=== PATIENT | male | born 1965 | race Caucasian/White ===

== ENCOUNTER → 2017-12-11 09:09 | Outpatient (CLI) | payer OTHER, SELFPAY ==
--- NOTE | 2017-12-11 09:18 | RAD_ITS ---
STUDY: X-RAY - RIGHT SHOULDER REASON FOR EXAM: Male, 51 years old. Pain TECHNIQUE: 4 view(s) of the shoulder. COMPARISON: None. FINDINGS: There is no evidence of fracture or dislocation. There are mild degenerative changes. There are no radiodense foreign bodies. RAD/Shoulder min 2 Views IMPRESSION: No fracture or dislocation. Mild degenerative changes Electronically Signed: Jc Nick, at 17:31 EDT Tel , Service support ,
== END ==
PROVIDERS: Family Provider Family Medicine; PCP Family Medicine; Referring Provider Family Medicine; Visit Provider Family Medicine
DX: M19.011 Primary osteoarthritis, right shoulder (principal)
CPT/HCPCS: 73030

== ENCOUNTER → 2018-02-20 11:34 | Outpatient (CLI) | payer OTHER, SELFPAY ==
[2018-02-20 14:38] LABS: Anion Gap 8 (5-15); BUN 20 mg/dL (7-18); BUN/Creat Ratio 20.4 RATIO (10-20); Calcium,Total 8.9 mg/dL (8.5-10.1); Chloride 102 mmol/L (98-107); Cholesterol 186 mg/dL (200); Creatinine, Serum 0.98 mg/dL (0.70-1.30); EST Glomerular Filtration Rate 85 mL/min (>60); Est Glom Filt Rate - Afr Amer 103 mL/min (>60); Glucose 89 mg/dL (74-106); High Density Lipoprotein 53 mg/dL; Potassium 4.8 mmol/L (3.5-5.1); Sodium Level 139 mmol/L (136-145); Triglycerides 63 mg/dL; Very Low Density Lipoprotein 13 mg/dL (5-40)
== END ==
PROVIDERS: Family Provider Family Medicine; PCP Family Medicine; Visit Provider Family Medicine
DX: I10 Essential (primary) hypertension (principal)
CPT/HCPCS: 36415; 80048; 80061

== ENCOUNTER 2018-05-30 08:30 | Outpatient (RCR) | payer OTHER, SELFPAY ==
--- NOTE | 2018-03-06 12:16 | HP.PTEVAL_ITS ---
Patient's Visit Information JEAN MARIE ALCARAZ is a 52 year old M referred to Physical Therapy by Loretta Madden MD with a diagnosis of RIGHT SHOULDER PAIN. Date of Evaluation: 03/06/18 Physical Therapist: Becka Rice PT, Cert MDT - Visit Plan Frequency: 2x /Week Duration: 4-6 Weeks Plan: CERVICAL AND RIGHT UE TREATMENT INCLUDING TX, US, E-STIM, STM, POSTURE CORRECTION/STRENGTHENING, INSTRUCTION IN APPROPRIATE BODY MECHANICS AND ACTIVITY MODIFICATIONS. JESUS UE ROM, STRETCHING AND STRENGTHENING. HEP INSTRUCTION. PATIENT IS AGREEABLE. CONSIDER DRY NEEDLING. - Subjective Findings: Diagnosis: RIGHT SHOULDER PAIN. 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 CURRENTLY ON SEASONAL LAYOFF. HOBBY - WORKING IN HIS YARD. Disability: NO. Present symptoms: RIGHT SHOULDER. RIGHT ARM FALLS ASLEEP INTERMITTENTLY. NO NECK PAIN. 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 DOESN'T USUALLY GET HEADACHES BUT WHEN HE DOES THEY USUALLY LAST ALL DAY. Present since: 2016. Pain Scale: Worst - 7/10 Least - 2/10. Currently: 05/05. Commenced as a result of: NO APPARENT REASON. Symptoms at onset: RIGHT. Worse: DOING CERTAIN THINGS AT WORK. DOING PHYSICAL LABOR. HAMMERING. ANYTIME I HAVE TO LIFT MY ARM UP. LIFTING THINGS. Better: I DON'T REALLY KNOW. ALEVE. Disturbed sleep: YES. Previous history/Previous treatment: NO TREATMENTS YET. Dizziness: NO. Tinnitis: NO. Nausea: NO. Shortness of Breath: NO. Difficulty Swollowing: NO. Gait: NORMAL. Accidents: NO. Unexplained weight loss: NO. Imaging: RIGHT SHOULDER RECENT X-RAY - MILD DEGENERATIVE CHANGES. PMH/Recent major surgery: HTN. SLEEP APNEA. PLOF (Prior Level of Function): UNLIMITED FUNCTION IN 2016 IN RIGHT UE BEFORE RIGHT SHOULDER PAIN AND DYSFUNCTION STARTED EXCEPT WEAKNESS IN HANDS THAT STARTED 6-8 YEARS AGO AFFECTING HIS GLASS TINTER BUT LIFTING WAS UNLIMITED. OTHER: RIGHT HANDED. *AFTER EXAM, PATIENT REPORTS THAT SEVERAL TIMES A YEAR WHEN HE SLEEPS WRONG HIS NECK HURTS AND IT GETS HARD TO TURN HIS HEAD EVEN ENOUGH TO DRIVE. HIS WORST NECK EPISODE WAS ABOUT SEP 2017 AND IT IS WORST ONE HE HAS HAD. - Objective Sitting Posture/Standing Posture: POOR. FORWARD HEAD AND ROUNDED SHOULDERS. Active Correction of posture: BETTER. ALLEVIATES RIGHT UE TINGLING ALMOST IMMEDIATELY. Other Observations: INDEP GAIT INTO PT. Motor deficit: 82 LBS LEFT AND 73 LBS RIGHT GLASS TINTER STRENGTH. LEFT UE 5/5. RIGHT UE: FLEX 3-/5, ABD 2+/5, IR 4/5, ER 4/5. RIGHT SHOULDER IR AND ER TESTING PROVOKES RIGHT SHOULDER PAIN. Sensory deficit: DECREASED LIGHT TOUCH RIGHT ARM COMPARED TO LEFT BUT INTACT AND SYMMETRICAL IN FOREARMS AND HANDS. ROM deficit: AROM RIGHT SHOULDER: SITTING, FLEX 131 DEG, ABD 112 DEG. SUPINE: PASSIVE RIGHT SHOULDER FLEX 158 DEG, ABD 142 DEG, IR 71 DEG, ER 76 DEG WITH ROTATIONS MEASURED AT 80 DEG ABD. Reflexes: UNABLE TO ELICIT JESUS UE DTR'S. Dural Signs: POSITIVE RIGHT UE AND NEGATIVE LUE. Cervical Mvmt Loss: Flex: NIL - PULLS ON THE BACK MUSCLES AND RIGHT SHOULDER > LEFT AND PRODUCES TINGLING DOWN THE RIGHT UE. Pro: NIL - NE. Ext: MOD - PRODUCES CENTRAL NECK PAIN. Ret: LACHO - NE. RSB: MIN - PRODUCES PULL ON RIGHT SHOULDER. LSB: MIN - NE. R Rot: MIN TO MOD - IT GAVE ME A HEADACHE FLEETING. L Rot: MIN TO MOD - NECK STIFFNESS. Postural strength: PPOR. Palpation: NO ACUTE TENDERNESS WITH PALPATION OF THE CERVICAL OR SHOULDER REGIONS INTO THE SHOULDER BLADES. OTHER: CERRVICAL DISTRACTION DECREASES RIGHT SHOULDER AND ARM SX'S. - Goals Goal 1:: DECREASE C/O RIGHT SHOULDER PAIN Goal Time Frame: 4-6 Weeks Goal 2:: IMPROVE LIFTING, REACHING, WORK, SLEEP AND RECREATIONAL FUNCTION Goal Time Frame: 4-6 Weeks Goal 3:: INDEP WITH HEP AND INSTRUCT IN PROPHYLAXIS FOR CONTINUED IMPROVEMENT ONCE FORMAL PHYSICAL THERAPY CONCLUDES. Goal Time Frame: 4-6 Weeks - Rehabilitation Potential Physical Therapy Diagnosis: NECK AND RIGHT SHOULDER PAIN WITH RIGHT UE WEAKNESS. Rehabilitation Potential: Fair - Anticipated Interventions Patient/Client Instruction: Educate patient on: Condition, Plan of Care, Risk Factors, Benefits of Fitness Program For the Purpose of:: To improve self management Therapeutic Exercise to Include: Strength training, Postural training, Flexibilty training, Passive ROM, Active ROM, Scapular Strength/Stabilization For the Purpose of:: To decrease pain, To increase ROM, To improve muscle performance and motor function, To increase tolerance to activity/condition/position, To improve ability of physical actions for home/community/work/leisure Manual Therapy Techniques to Include: Mobilization, Functional dry needling, Soft tissue mobilization For the Purpose of:: To decrease pain, To increase ROM, To improve nutrient delivery to tissue TENS: Yes Cryotherapy (ice pack, ice massage): Yes Thermo therapy (hot pack): Yes Ultrasound (thermal/non thermal): Yes Intermittent cervical traction: Yes - STARTING WITH MANUAL FIRST. For the Purpose of:: To decrease pain, To decrease swelling/inflammation, To improve nutrient delivery to tissue Thank you for the opportunity to evaluate your patient. For Medicare and Medicare HMO plans, please review the plan of care and approve it. It will need to be FAXED BACK to us at [phone] for Medicare purposes. For Medicare only, by signing this I certify the plan of care. Please let me know if there are questions or concerns regarding this plan of care. Physician Signature: Date:
--- NOTE | 2018-04-30 10:20 | HP.PTREVAL ---
Loretta Madden MD, It has been my pleasure to treat JEAN MARIE ALCARAZ over the last 11 visits for RIGHT SHOULDER PAIN. Please see the progress note below for an update on the physical therapy plan of care! Subjective: PATIENT REPORTS HIS SHOULDER DOESN'T CLICK THE WAY IT USE TO. I AM DEFINATELY NOT IN PAIN THE WAY THAT I WAS. HE REPORTS DECREASED EPISODES OF EXTREMITIES GOING TO SLEEP BUT IT HAPPENDED A FEW NIGHTS AGO. PATIENT REPORTS HE IS STILL MINDFUL WITH HOW HE USES IT THOUGH. PATIENT REPORTS HE ANTICIPATES GOING BACK TO WORK VERY SOON BUT HE REALLY HASN'T TESTED HIS SHOULDER OUT. PATIENT REPORTS HE THINKS THE TRACTION HELPED HIS SHOULDER AND IT ALWAYS HELPS WHEN IT GETS STRETCHED. FOLLOW UP PENDING WITH DR. MADDEN TODAY. PATIENT REPORTS HE IS DOING HIS HOME EX'S AND THEY LIKE HIM. HE WOULD LIKE TO SEE IF HE CAN PROGRESS TO BUILD UP FOR WORK. Objective/Function: GOOD PROGRESS TOWARD ALL GOALS. PAINFREE CERVICAL AND SHOULDER ROM IMPROVING. DECREASED RIGHT UE NUMBNESS AND TINGLING. INCREASING RIGHT UE STRENGTH AND FUNCTION. QUICK DASH SCORE HAS IMPROVED FROM 31 AT EVAL TO 21 TODAY. 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 LEFT UE 5/5. RIGHT UE: FLEX 4/5, ABD 4/5, IR 5/5, ER 4/5. RIGHT SHOULDER IR AND ER TESTING PROVOKES RIGHT SHOULDER PAIN. Sensory deficit: DECREASED LIGHT TOUCH RIGHT ARM COMPARED TO LEFT BUT INTACT AND SYMMETRICAL IN FOREARMS AND HANDS. ROM deficit: AROM RIGHT SHOULDER: SITTING, FLEX 160 DEG, ABD 170 DEG. SUPINE: PASSIVE RIGHT SHOULDER FLEX - FULL, ABD - FULL, IR 80 DEG, ER 90+ DEG WITH ROTATIONS MEASURED AT 90 DEG ABD. Dural Signs: NEGATIVE JESUS UE'S NOW. Cervical Mvmt Loss: Flex: NIL - NE (DOES NOT PRODUCE RIGHT UE SX'S NOW). Pro: NIL - NE. Ext: MOD - NE. Ret: MOD - NE. RSB: MIN - NE. LSB: MIN - NE. R Rot: MIN TO MOD - NE. L Rot: MIN TO MOD - NE. Postural strength: PPOR. Palpation: NO ACUTE TENDERNESS WITH PALPATION OF THE CERVICAL OR SHOULDER REGIONS INTO THE SHOULDER BLADES. OTHER: CERRVICAL DISTRACTION DECREASES RIGHT SHOULDER AND ARM SX'S. PATIENT ALSO REPORTS DECREASED SHOULDER PAIN WITH MANUAL THERAPY OF SHOULDER (MOBILIZATION AND PASSIVE STRETCHING). Plan Plan: THIS PT AND THERAPIST ARE IN AGREEMENT THAT PATIENT MAY BENEFIT FROM CONTINUED PT BASED ON PROGRESS MADE SO FAR AND ROOM FOR MORE IMPROVEMENT. RECOMMEND CONT PT 2X'S A WEEK X 2 WEEKS FOR CERVICAL TRACTION NEEDED AND PROGRESSIVE RESISTIVE EX TO HELP SUCCESSFUL TRANSITION BACK TO HEAVY WORK. Goals Goal 1:: DECREASE C/O RIGHT SHOULDER PAIN Goal Time Frame: 4-6 Weeks Goal Progress: Progressing Goal 2:: IMPROVE LIFTING, REACHING, WORK, SLEEP AND RECREATIONAL FUNCTION Goal Time Frame: 4-6 Weeks Goal Progress: Progressing Goal 3:: INDEP WITH HEP AND INSTRUCT IN PROPHYLAXIS FOR CONTINUED IMPROVEMENT ONCE FORMAL PHYSICAL THERAPY CONCLUDES. Goal Time Frame: 4-6 Weeks Goal Progress: Progressing Anticipated Interventions Patient/Client Instruction: Educate patient on: Condition, Plan of Care, Risk Factors, Benefits of Fitness Program For the Purpose of:: To improve self management Therapeutic Exercise to Include: Strength training, Postural training, Flexibilty training, Passive ROM, Active ROM, Scapular Strength/Stabilization For the Purpose of:: To decrease pain, To increase ROM, To improve muscle performance and motor function, To increase tolerance to activity/condition/position, To improve ability of physical actions for home/community/work/leisure Manual Therapy Techniques to Include: Mobilization, Functional dry needling, Soft tissue mobilization For the Purpose of:: To decrease pain, To increase ROM, To improve nutrient delivery to tissue TENS: Yes Cryotherapy (ice pack, ice massage): Yes Thermo therapy (hot pack): Yes Ultrasound (thermal/non thermal): Yes Intermittent cervical traction: Yes - STARTING WITH MANUAL FIRST. For the Purpose of:: To decrease pain, To decrease swelling/inflammation, To improve nutrient delivery to tissue Please do not hesitate to contact me at [phone] by phone or if you have questions or concerns regarding this new plan of care! Sincerely, Becka Rice, PT, Cert MDT
--- NOTE | 2018-05-30 10:04 | HP.PTDCSUM_ITS ---
HP - PT D/C Summary It has been my pleasure to treat JEAN MARIE ALCARAZ under orders from Loretta Madden MD, for the diagnosis of RIGHT SHOULDER PAIN for a total of 17 visit(s). Discharge Date: 05/30/18 Please see the following information for a summary of their discharge status. - Subjective Subjective: PATIENT REPORTS HE HAS NOT BEEN WORKING THE LAST WEEK AND ISN'T SURE IF HE STILL HAS A JOB. HAS TRIED TO START DOING THINGS OUTSIDE. STATES HIS RIGHT SHOULDER JUST STILL HURTS. HE REPORTS HIS RIGHT SHOULDER PAIN LIMITS HIM WANTING TO DO MUCH WITH IT. I STILL DO IT BUT THEN I PAY FOR IT. REQUESTING JUST RIGHT SHOULDER US AND MANUAL STRETCHING AND OTHER SHOULDER TREATMENT TODAY. PATIENT REPORTS THERAPY HAS REALLY HELPED A LOT BUT HE WANTS AN MRI AND WANTS TO KNOW WHAT IS GOING ON IN HIS NECK AND SHOULDER. - Pain ACROSS SHOULDER BLADES Pain Intensity (Out of 10): 0 RIGHT SHOULDER Pain Intensity (Out of 10): 4 NECK Pain Intensity (Out of 10): 2 LEFT SHOULDER Pain Intensity (Out of 10): 0 - Overall Improvement % Improvement: 80 - Objective Objective/Function: RECOMMEND PHYSICIAN RE-CHECK. TOLERATED ALL INTERVENTIONS WELL TODAY AND REPORTED MUCH IMPROVEMENT OVER-ALL SINCE STARTING PT BUT STILL HAVING SIGNIFICANT PAIN LIMITING HIM. REPORTS IT ALWAYS FEELS BETTER AFTER THE PT SESSIONS AND THE HOME EX'S FEEL GOOD TOO. INDEP WITH HEP. 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 UPON EXAM: GOOD PROGRESS TOWARD ALL GOALS OVER-ALL BUT PATIENT TRIED TO RETURN TO WORK RESULTING IN INCREASED PAIN. PAINFREE CERVICAL AND SHOULDER ROM HAVE IMPROVED. DECREASED RIGHT UE NUMBNESS AND TINGLING. INCREASING RIGHT UE STRENGTH AND FUNCTION. QUICK DASH SCORE HAS IMPROVED FROM 31 AT EVAL TO 21 AND NOT MUCH CHANGE AT 22 TODAY. NO SIGNIFICANT NECK OR RIGHT UE ROM OR STRENGTH CHANGES TODAY COMPARED TO LAST RE-CHECK 04/30/18. - Goals Goal 1:: DECREASE C/O RIGHT SHOULDER PAIN Goal Progress: Progressing Goal 2:: IMPROVE LIFTING, REACHING, WORK, SLEEP AND RECREATIONAL FUNCTION Goal Progress: Progressing Goal 3:: INDEP WITH HEP AND INSTRUCT IN PROPHYLAXIS FOR CONTINUED IMPROVEMENT ONCE FORMAL PHYSICAL THERAPY CONCLUDES. Goal Progress: Progressing - Plan Plan: D/C AND REFERRAL OF PATIENT BACK TO PCP DUE TO PATIENT FRUSTRATION AND LACK OF CONTINUED IMPROVEMENT. - D/C Information If there are questions or concerns regarding this patient's physical therapy, please feel free to call me at [phone]. Thank you for the referral of this patient. Sincerely, Becka Rice PT, Cert MDT
== END 2018-05-30 16:07 | disposition home or self-care (01) ==
LOC: PT 08:30
PROVIDERS: Family Provider Family Medicine; PCP Family Medicine; Referring Provider Family Medicine; Visit Provider Family Medicine
DX: M25.511 Pain in right shoulder (principal)
CPT/HCPCS: 97012; 97014; 97035; 97110; 97140; 97162; 97530; G0283

== ENCOUNTER → 2019-08-19 15:49 | Outpatient (CLI) | payer OTHER, SELFPAY ==
[2019-08-19 18:03] LABS: Absolute Lymphocyte Count 2.52 X10^3/uL (0.83-4.51); Absolute Neutrophil Count 3.5 X10^3/uL (2.0-7.7); Basophil# 0.03 X10^3/uL; Basophil% 0.5 % (0-1); Eosinophil# 0.05 X10^3/uL; Eosinophils% 0.8 % (0-5); Hematocrit 42.7 % (40-54); Hemoglobin 14.2 g/dL (13.0-16.5); Lymphocyte # 2.52 X10^3/ul (4.0); Lymphocyte % 38.2 % (19-41); Mean Corp Hgb Conc 33.3 g/dL (32-36); Mean Corpuscular Hgb 28.4 pg (27.0-32.0); Mean Corpuscular Volume 85.4 fL (80-94); Mean Platelet Vol. 10.8 fl (6.2-12.0); Monocyte# 0.47 X10^3/uL; Monocyte% 7.1 % (0-10); NRBC Flagged by Analyzer 0 % (0-5); Neutrophil % 53.1 % (47-70); POSITIVE MORPHOLOGY YES; Platelet Count 214 K/mm3 (150-450); RBC Distribution Width CV 13.3 % (11.6-14.6); RBC Distribution Width SD 41.1 fl (35.1-43.9); White Blood Count 6.6 K/mm3 (4.4-11.0)
[2019-08-19 18:10] LABS: Differential Indicated SCAN CRITERIA MET
[2019-08-19 18:28] LABS: ALB/GLOB Ratio 1.1 RATIO (0.9-2.4); AST(SGOT) 14 U/L (15-37); Alanine Aminotransfer ALT/SGPT 26 U/L (16-61); Albumin, Serum 3.8 g/dL (3.2-5.0); Alkaline Phosphatase 85 U/L (45-117); Anion Gap 4 (5-15); BUN 19 mg/dL (7-18); BUN/Creat Ratio 20.5 RATIO (10-20); Calcium,Total 8.6 mg/dL (8.5-10.1); Chloride 102 mmol/L (98-107); Cholesterol 175 mg/dL (200); Creatinine, Serum 0.93 mg/dL (0.70-1.30); EST Glomerular Filtration Rate 90 mL/min (>60); Est Glom Filt Rate - Afr Amer 109 mL/min (>60); Globulin 3.6 g/dL (2.2-4.2); Glucose 86 mg/dL (74-106); High Density Lipoprotein 49 mg/dL; PSA,Total - Annual Screen 0.16 ng/mL (0.00-4.00); Potassium 3.8 mmol/L (3.5-5.1); Protein, Total 7.4 g/dL (6.4-8.2); Sodium Level 136 mmol/L (136-145); Triglycerides 100 mg/dL; Very Low Density Lipoprotein 20 mg/dL (5-40)
[2019-08-19 19:20] LABS: Differential Comment SCANNED
== END ==
PROVIDERS: PCP Family Medicine; Referring Provider Family Medicine; Visit Provider Family Medicine
DX: Z00.00 Encounter for general adult medical examination without abnormal findings (principal); Z80.42 Family history of malignant neoplasm of prostate
CPT/HCPCS: 36415; 80053; 80061; 84153; 84443; 85025; G0103

== ENCOUNTER → 2020-04-22 09:55 | Outpatient (CLI) | payer OTHER, SELFPAY ==
--- NOTE | 2020-04-22 10:00 | RAD_ITS ---
STUDY: X-RAY - ESOPHAGUS (BARIUM SWALLOW) WITH FLUOROSCOPY REASON FOR EXAM: Male, 54 years old. DYSPHAGIA -- ENDOSCOPY 3-4 YEARS AGO -- PAIN WITH FOOD GETTING STUCK 1 YEAR TECHNIQUE: 20 view(s) of the esophagus were obtained following swallowing of barium. FLUOROSCOPY TIME (if supplied): (0:43) minutes/seconds COMPARISON: None. FINDINGS: There is no demonstrated esophageal foreign body. There is no demonstrated stricture or mucosal abnormality. Normal gastroesophageal junction, without a demonstrated hiatal hernia. Normal visualized aortic arch and descending thoracic aorta. Normal visualized pulmonary parenchyma. Normal visualized osseous structures of the thorax. RAD/Esophagus Dual Contrast IMPRESSION: Normal plain film x-ray examination (barium swallow) of the esophagus. Electronically Signed: Lane Morris MD at 14:23 EST , Service support ,
== END ==
PROVIDERS: PCP Family Medicine; Referring Provider Family Medicine; Visit Provider Family Medicine
DX: R13.10 Dysphagia, unspecified (principal)
CPT/HCPCS: 74221

== ENCOUNTER → 2020-04-30 14:05 | Outpatient (CLI) | payer OTHER, SELFPAY ==
[2020-04-30 14:10] LABS: Bacteria 0 SEEN /hpf (None Seen); Mucous, Urine 0 SEEN /hpf (<or=2+); Red Blood Cells-Urine 0 SEEN /hpf (0-5); Squamous Epithelial Cells - UA 0 SEEN /hpf (0-5); White Blood Cells 0 SEEN /hpf (0-5)
[2020-04-30 17:52] LABS: Absolute Lymphocyte Count 2.26 X10^3/uL (0.83-4.51); Absolute Neutrophil Count 2.7 X10^3/uL (2.0-7.7); Basophil# 0.03 X10^3/uL; Basophil% 0.6 % (0-1); Eosinophil# 0.04 X10^3/uL; Eosinophils% 0.7 % (0-5); Hematocrit 41.9 % (40-54); Hemoglobin 14.4 g/dL (13.0-16.5); Lymphocyte # 2.26 X10^3/ul (4.0); Lymphocyte % 41.5 % (19-41); Mean Corp Hgb Conc 34.4 g/dL (32-36); Mean Corpuscular Hgb 29.5 pg (27.0-32.0); Mean Corpuscular Volume 85.9 fL (80-94); Mean Platelet Vol. 10.4 fl (6.2-12.0); Monocyte# 0.42 X10^3/uL; Monocyte% 7.7 % (0-10); NRBC Flagged by Analyzer 0 % (0-5); Neutrophil # 2.69 X10^3/uL (2.7-7.7); Neutrophil % 49.3 % (47-70); Platelet Count 211 K/mm3 (150-450); RBC Distribution Width CV 13.8 % (11.6-14.6); RBC Distribution Width SD 42.5 fl (35.1-43.9); Red Blood Count 4.88 M/mm3 (4.6-6.2); White Blood Count 5.5 K/mm3 (4.4-11.0)
[2020-04-30 17:58] LABS: Color, Urine Yellow (Yellow); Glucose, Dipstick Normal (Normal); Ketone-Dipstick Negative (Negative); Leukocyte Esterase-Dipstick Negative /ul (Negative); Nitrite-Dipstick Negative (Negative); Occult Blood-Urine Negative /ul (Negative); Protein-Dipstick Negative (Negative); Specific Gravity, Urine 1.015 (1.002-1.030); Urine Bilirubin Dipstick Negative (Negative); Urine Clarity Clear (Clear); Urine Urobilinogen Normal (Normal)
[2020-04-30 18:20] LABS: ALB/GLOB Ratio 1.2 RATIO (0.9-2.4); AST(SGOT) 12 U/L (15-37); Alanine Aminotransfer ALT/SGPT 31 U/L (16-61); Alkaline Phosphatase 79 U/L (45-117); Anion Gap 4 (5-15); BUN 18 mg/dL (7-18); BUN/Creat Ratio 13.2 RATIO (10-20); Calcium,Total 8.9 mg/dL (8.5-10.1); Chloride 103 mmol/L (98-107); Cholesterol 177 mg/dL (200); Creatinine, Serum 1.36 mg/dL (0.70-1.30); EST Glomerular Filtration Rate 58 mL/min (>60); Est Glom Filt Rate - Afr Amer 70 mL/min (>60); Globulin 3.4 g/dL (2.2-4.2); Glucose 75 mg/dL (74-106); High Density Lipoprotein 60 mg/dL; Protein, Total 7.4 g/dL (6.4-8.2); Sodium Level 137 mmol/L (136-145); Thyroid Stim Hormone (TSH) 1.36 uIU/mL (0.358-3.74); Triglycerides 61 mg/dL; Very Low Density Lipoprotein 12 mg/dL (5-40)
== END ==
PROVIDERS: PCP Family Medicine; Referring Provider Family Medicine; Visit Provider Family Medicine
DX: I10 Essential (primary) hypertension (principal); Z12.5 Encounter for screening for malignant neoplasm of prostate
CPT/HCPCS: 36415; 80053; 80061; 81001; 84443; 85025

== ENCOUNTER 2020-06-11 07:00 | Outpatient (RCR) | payer OTHER, SELFPAY ==
--- NOTE | 2020-05-07 08:15 | HP.PTEVAL ---
Patient's Visit Information JEAN MARIE ALCARAZ is a 54 year old M referred to Physical Therapy by Dr. Hank Garcia MD with a diagnosis of RIGHT KNEE CONTUSION. Date of Evaluation: 05/07/20 Physical Therapist: Hank Viveros, PT, Cert MDT, OCS - Visit Plan Frequency: 3x /Week Duration: 4 Weeks Plan: PT INTERVENTIONS WITH ROM/FLEXABLITY,STRETCHING QUADS/HAMS,PRE'S QUADS/HAMS/HIP ,FUNCTIONAL STRENGGHENING ,BIKE - Subjective This 54 y/o male presents to physical therapy right knee contusion. 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 Patient continue to work pain presisted thus patient finally seen DR Cohen Mar . had x-rays - . Recommeded PT . Pain is located posterior stiffness lack ROM. Aggraveted squatted ,kneeling,stairs. Alleviating factors rest. Patient denies parathesia/tigling. Patient intially had difficulty sleeping.Patient is not working at [employer]. Patient contusion right knee affects job deamands and housework tasks. Patient condition affects QOL. SOCIAL: single. VOCATION: Own business self employed - Pain Right Knee Pain Intensity (Out of 10): 5 Pain Intensity Range: 10 - Objective POSTURE: WFL. PALAPTION: NEURO: intact. EDEMA: absent. AROM: 5-115 degrees supine knee flexion. MMT: quads/4-/5,hams 4/5,hip flexion 4-/5,hip abd 4-/5 ,ankle 4/5. FLEXABILITY: mod tight hams. STAIRS: lateranating with rail. SQUATTING: pain - Special Tests R Knee Inderjit - Meniscus: Negative R Knee Apley - Meniscus: Negative R Knee Yahaira - ACL: Negative R Knee Anterior Drawer - ACL: Negative R Knee Valgus - MCL: Negative R Knee Varus - LCL: Negative R Knee Patellar Apprehension - PFS: Negative R Knee Patellar Grind - PFS: Negative - Goals Goal 1:: I with HEP. Goal Time Frame: 4-6 Weeks Goal 2:: Decrease knee pain by 75% or > to improve function and job demnads. Goal Time Frame: 4-6 Weeks Goal 3:: Patient to improve AROM knee 0-130 degrees to mprove function Goal Time Frame: 4-6 Weeks Goal 4:: Patient to improve strength quads/hams 4/5 to improve function Goal Time Frame: 4-6 Weeks Goal 5:: Patient to improve LFES score by 5 points or> to improev QOL. Goal Time Frame: 4-6 Weeks - Rehabilitation Potential Physical Therapy Diagnosis: This 54 y/o male presents to physical therapy with Right knee pain from falling on knee with decrease ROM and strength impairs function with job demands and ADLS' Rehabilitation Potential: Good - Anticipated Interventions Patient/Client Instruction: Educate patient on: Condition, Plan of Care For the Purpose of:: To decrease pain, To increase ROM, To improve nutrient delivery to tissue, To increase oxygenation perfusion, To improve muscle performance and motor function, To improve ability to perform ADL's, To increase tolerance to activity/condition/position, To improve ability of physical actions for home/community/work/leisure, To improve health of tissue, To decrease soft tissue restriction, To increase flexibility/ROM, To improve ability to perform tasks related to life management Therapeutic Exercise to Include: Strength training, Endurance training, Coordination, Flexibilty training, Passive ROM, Active ROM Comment: HIP/KNEE For the Purpose of:: To decrease pain, To increase ROM, To improve muscle performance and motor function, To increase tolerance to activity/condition/position, To improve performance and independence with ADL's, To improve ability of physical actions for home/community/work/leisure, To improve health of tissue, To decrease soft tissue restriction, To increase flexibility/ROM TENS: Yes IF ES: Yes Cryotherapy (ice pack, ice massage): Yes Thermo therapy (hot pack): Yes For the Purpose of:: To decrease pain, To improve nutrient delivery to tissue, To increase oxygenation perfusion, To improve health of tissue, To decrease soft tissue restriction Thank you for the opportunity to evaluate your patient. For Medicare and Medicare HMO plans, please review the plan of care and approve it. It will need to be FAXED BACK to us at [phone] for Medicare purposes. For Medicare only, by signing this I certify the plan of care. Please let me know if there are questions or concerns regarding this plan of care. Physician Signature: Date:
--- NOTE | 2020-06-11 07:32 | HP.PTDCSUM ---
It has been my pleasure to treat JEAN MARIE ALCARAZ referred by Dr. Hank Garcia MD, with the diagnosis of RIGHT KNEE CONTUSION for a total of 13 visit(s). Discharge Date: 06/11/20 Please see the following information for a summary of their discharge status. Subjective: Patient conts to c/o stiffness,RTW Right Knee Pain Intensity (Out of 10): 3 % Improvement: 60 Objective/Function: GAIT: NORMAL CANDIDO. AROM: 0-115 DEGREES. MMT: QUADS/HAMS HIP 5/5 Goal 1:: I with HEP. Goal Progress: Goal Met Goal 2:: Decrease knee pain by 75% or > to improve function and job demnads. Goal Progress: Goal Met Goal 3:: Patient to improve AROM knee 0-130 degrees to mprove function Goal Progress: Goal Met Goal 4:: Patient to improve strength quads/hams 4/5 to improve function Goal Progress: Goal Met Goal 5:: Patient to improve LFES score by 5 points or> to improev QOL. Goal Progress: Goal Met Plan: PT INTERVENTIONS WITH ROM/FLEXIBILITY,STRETCHING QUADS/HAMS,PRE'S QUADS/HAMS/HIP ,FUNCTIONAL STRENGTHENING ,BIKE Discharge Comments: HEP AND HP If there are questions or concerns regarding this patient's physical therapy, please feel free to call me at [phone]. Thank you for the referral of this patient. Sincerely, Hank Viveros, PT, Cert MDT, OCS
== END 2020-06-11 19:00 | disposition home or self-care (01) ==
LOC: PT 07:00
PROVIDERS: PCP Family Medicine; Referring Provider Emergency Medicine; Visit Provider Emergency Medicine
DX: S80.01XD Contusion of right knee, subsequent encounter (principal)
CPT/HCPCS: 97110; 97162; 97530

== ENCOUNTER → 2020-10-27 11:31 | Outpatient (CLI) | payer OTHER, SELFPAY ==
[2020-10-27 15:06] LABS: Absolute Lymphocyte Count 1.95 X10^3/uL (0.83-4.51); Absolute Neutrophil Count 3.2 X10^3/uL (2.0-7.7); Basophil# 0.01 X10^3/uL; Basophil% 0.2 % (0-1); Eosinophil# 0.05 X10^3/uL; Eosinophils% 0.9 % (0-5); Hematocrit 42.5 % (40-54); Hemoglobin 14.4 g/dL (13.0-16.5); Lymphocyte # 1.95 X10^3/ul (0.83-4.51); Lymphocyte % 34.5 % (19-41); Mean Corp Hgb Conc 33.9 g/dL (32-36); Mean Corpuscular Hgb 28.9 pg (27.0-32.0); Mean Corpuscular Volume 85.2 fL (80-94); Mean Platelet Vol. 10.5 fl (6.2-12.0); Monocyte# 0.47 X10^3/uL; Monocyte% 8.3 % (0-10); NRBC Flagged by Analyzer 0 % (0-5); Neutrophil # 3.17 X10^3/uL (2.7-7.7); Neutrophil % 55.9 % (47-70); Platelet Count 217 K/mm3 (150-450); RBC Distribution Width CV 13.2 % (11.6-14.6); RBC Distribution Width SD 40.9 fl (35.1-43.9); Red Blood Count 4.99 M/mm3 (4.6-6.2); White Blood Count 5.7 K/mm3 (4.4-11.0)
[2020-10-27 15:42] LABS: AST(SGOT) 17 U/L (15-37); Alanine Aminotransfer ALT/SGPT 30 U/L (16-61); Albumin, Serum 3.8 g/dL (3.2-5.0); Alkaline Phosphatase 79 U/L (45-117); Anion Gap 4 (5-15); BUN 21 mg/dL (7-18); BUN/Creat Ratio 22.8 RATIO (10-20); Chloride 103 mmol/L (98-107); Cholesterol 177 mg/dL (200); Creatinine, Serum 0.92 mg/dL (0.70-1.30); EST Glomerular Filtration Rate 90 mL/min (>60); Est Glom Filt Rate - Afr Amer 109 mL/min (>60); Globulin 3.7 g/dL (2.2-4.2); Glucose 82 mg/dL (74-106); High Density Lipoprotein 55 mg/dL; Potassium 4.6 mmol/L (3.5-5.1); Protein, Total 7.5 g/dL (6.4-8.2); Sodium Level 134 mmol/L (136-145); Triglycerides 67 mg/dL; Very Low Density Lipoprotein 13 mg/dL (5-40)
== END ==
PROVIDERS: PCP Family Medicine; Referring Provider Family Medicine; Visit Provider Family Medicine
DX: I10 Essential (primary) hypertension (principal)
CPT/HCPCS: 36415; 80053; 80061; 85025

== ENCOUNTER 2021-04-27 10:34 | Outpatient (CLI) | payer OTHER, SELFPAY ==
[2021-04-27 10:44] LABS: Bacteria 0 SEEN /hpf (None Seen); Mucous, Urine 0 SEEN /hpf (<or=2+); Red Blood Cells-Urine 0 SEEN /hpf (0-5); White Blood Cells 0 SEEN /hpf (0-5)
[2021-04-27 12:04] LABS: Color, Urine Yellow (Yellow); Glucose, Dipstick Normal (Normal); Ketone-Dipstick Negative (Negative); Leukocyte Esterase-Dipstick Negative /ul (Negative); Nitrite-Dipstick Negative (Negative); Occult Blood-Urine Negative /ul (Negative); Protein-Dipstick Negative (Negative); Specific Gravity, Urine 1.015 (1.002-1.030); Urine Bilirubin Dipstick Negative (Negative); Urine Clarity Clear (Clear); Urine Urobilinogen Normal (Normal)
[2021-04-27 12:07] LABS: Absolute Lymphocyte Count 1.77 X10^3/uL (0.83-4.51); Absolute Neutrophil Count 2.7 X10^3/uL (2.0-7.7); Basophil# 0.04 X10^3/uL; Basophil% 0.8 % (0-1); Eosinophil# 0.06 X10^3/uL; Eosinophils% 1.2 % (0-5); Hematocrit 42.6 % (40-54); Hemoglobin 14.6 g/dL (13.0-16.5); Lymphocyte # 1.77 X10^3/ul (0.83-4.51); Lymphocyte % 35.8 % (19-41); Mean Corp Hgb Conc 34.3 g/dL (32-36); Mean Corpuscular Hgb 29.4 pg (27.0-32.0); Mean Corpuscular Volume 85.9 fL (80-94); Mean Platelet Vol. 10.3 fl (6.2-12.0); Monocyte# 0.37 X10^3/uL; Monocyte% 7.5 % (0-10); NRBC Flagged by Analyzer 0 % (0-5); Neutrophil # 2.69 X10^3/uL (2.7-7.7); Neutrophil % 54.5 % (47-70); Platelet Count 213 K/mm3 (150-450); RBC Distribution Width CV 13.1 % (11.6-14.6); RBC Distribution Width SD 40.8 fl (35.1-43.9); Red Blood Count 4.96 M/mm3 (4.6-6.2); White Blood Count 4.9 K/mm3 (4.4-11.0)
[2021-04-27 12:22] LABS: Squamous Epithelial Cells - UA 0-5 SEEN /hpf (0-5)
[2021-04-27 12:30] LABS: ALB/GLOB Ratio 1.1 RATIO (0.9-2.4); AST(SGOT) 14 U/L (15-37); Alanine Aminotransfer ALT/SGPT 32 U/L (16-61); Albumin, Serum 3.7 g/dL (3.2-5.0); Alkaline Phosphatase 70 U/L (45-117); Anion Gap 6 (5-15); BUN 19 mg/dL (7-18); BUN/Creat Ratio 18.1 RATIO (10-20); Calcium,Total 9.1 mg/dL (8.5-10.1); Chloride 106 mmol/L (98-107); Cholesterol 174 mg/dL (200); Creatinine, Serum 1.05 mg/dL (0.70-1.30); EST Glomerular Filtration Rate 78 mL/min (>60); Est Glom Filt Rate - Afr Amer 94 mL/min (>60); Globulin 3.4 g/dL (2.2-4.2); Glucose 82 mg/dL (74-106); High Density Lipoprotein 57 mg/dL; PSA,Total - Annual Screen 0.12 ng/mL (0.00-4.00); Potassium 4.2 mmol/L (3.5-5.1); Protein, Total 7.1 g/dL (6.4-8.2); Sodium Level 138 mmol/L (136-145); Triglycerides 92 mg/dL; Very Low Density Lipoprotein 18 mg/dL (5-40)
== END 2021-04-27 23:59 | disposition home or self-care (01) ==
LOC: MFPLAB 10:35
PROVIDERS: PCP Family Medicine; Referring Provider Family Medicine; Visit Provider Family Medicine
DX: I10 Essential (primary) hypertension (principal); Z12.5 Encounter for screening for malignant neoplasm of prostate
CPT/HCPCS: 36415; 80053; 80061; 81001; 84153; 85025; G0103

== ENCOUNTER → 2021-11-29 | Outpatient (CLI) | payer OTHER, SELFPAY ==
[2021-11-29 12:07] LABS: Absolute Lymphocyte Count 2.03 X10^3/uL (0.83-4.51); Absolute Neutrophil Count 3.3 X10^3/uL (2.0-7.7); Basophil# 0.03 X10^3/uL; Basophil% 0.5 % (0-1); Eosinophil# 0.07 X10^3/uL; Eosinophils% 1.2 % (0-5); Hematocrit 42.3 % (40-54); Hemoglobin 14.4 g/dL (13.0-16.5); Lymphocyte # 2.03 X10^3/ul (0.83-4.51); Lymphocyte % 34.1 % (19-41); Mean Corpuscular Volume 85.1 fL (80-94); Mean Platelet Vol. 10.2 fl (6.2-12.0); Monocyte# 0.51 X10^3/uL; Monocyte% 8.6 % (0-10); NRBC Flagged by Analyzer 0 % (0-5); Neutrophil # 3.29 X10^3/uL (2.7-7.7); Neutrophil % 55.3 % (47-70); Platelet Count 218 K/mm3 (150-450); RBC Distribution Width CV 13.2 % (11.6-14.6); RBC Distribution Width SD 40.7 fl (35.1-43.9); Red Blood Count 4.97 M/mm3 (4.6-6.2)
[2021-11-29 12:12] LABS: Mucous, Urine 0 SEEN /hpf (<or=2+); Red Blood Cells-Urine 0 SEEN /hpf (0-5)
[2021-11-29 13:02] LABS: AST(SGOT) 15 U/L (15-37); Alanine Aminotransfer ALT/SGPT 28 U/L (16-61); Albumin, Serum 3.7 g/dL (3.2-5.0); Alkaline Phosphatase 79 U/L (45-117); Anion Gap 7 (5-15); BUN 19 mg/dL (7-18); BUN/Creat Ratio 19.9 RATIO (10-20); Calcium,Total 8.8 mg/dL (8.5-10.1); Chloride 104 mmol/L (98-107); Cholesterol 165 mg/dL (200); Creatinine, Serum 0.96 mg/dL (0.70-1.30); EST Glomerular Filtration Rate 86 mL/min (>60); Est Glom Filt Rate - Afr Amer 105 mL/min (>60); Globulin 3.8 g/dL (2.2-4.2); Glucose 81 mg/dL (74-106); High Density Lipoprotein 60 mg/dL; Potassium 4.2 mmol/L (3.5-5.1); Protein, Total 7.5 g/dL (6.4-8.2); Sodium Level 137 mmol/L (136-145); Thyroid Stim Hormone (TSH) 0.96 uIU/mL (0.358-3.74); Triglycerides 72 mg/dL; Very Low Density Lipoprotein 14 mg/dL (5-40)
[2021-11-29 15:20] LABS: Color, Urine Yellow (Yellow); Glucose, Dipstick Normal (Normal); Ketone-Dipstick Negative (Negative); Leukocyte Esterase-Dipstick Negative /ul (Negative); Nitrite-Dipstick Negative (Negative); Occult Blood-Urine Negative /ul (Negative); Protein-Dipstick Negative (Negative); Specific Gravity, Urine 1.015 (1.002-1.030); Urine Bilirubin Dipstick Negative (Negative); Urine Clarity Clear (Clear); Urine Urobilinogen Normal (Normal)
[2021-11-29 16:21] LABS: Squamous Epithelial Cells - UA 0-5 SEEN /hpf (0-5); White Blood Cells 0-5 SEEN /hpf (0-5)
[2021-11-29 16:22] LABS: Bacteria RARE /hpf (None Seen)
== END | disposition home or self-care (01) ==
LOC: MFPLAB 11:15
PROVIDERS: PCP Family Medicine; Visit Provider Family Medicine
DX: I10 Essential (primary) hypertension (principal)
CPT/HCPCS: 36415; 80053; 80061; 81001; 84443; 85025

== ENCOUNTER → 2022-05-02 | Outpatient (CLI) | payer OTHER, SELFPAY ==
[2022-05-02 10:40] LABS: Bacteria 0 SEEN /hpf (None Seen); Mucous, Urine 0 SEEN /hpf (<or=2+); Red Blood Cells-Urine 0 SEEN /hpf (0-5); Squamous Epithelial Cells - UA 0 SEEN /hpf (0-5); White Blood Cells 0 SEEN /hpf (0-5)
[2022-05-02 12:33] LABS: Color, Urine Yellow (Yellow); Glucose, Dipstick Normal (Normal); Ketone-Dipstick Negative (Negative); Leukocyte Esterase-Dipstick Negative /ul (Negative); Nitrite-Dipstick Negative (Negative); Occult Blood-Urine Negative /ul (Negative); Protein-Dipstick Negative (Negative); Specific Gravity, Urine 1.025 (1.002-1.030); Urine Bilirubin Dipstick Negative (Negative); Urine Clarity Clear (Clear); Urine Urobilinogen Normal (Normal)
[2022-05-02 12:48] LABS: Absolute Lymphocyte Count 2.24 X10^3/uL (0.83-4.51); Absolute Neutrophil Count 3.8 X10^3/uL (2.0-7.7); Basophil# 0.03 X10^3/uL; Basophil% 0.5 % (0-1); Eosinophil# 0.07 X10^3/uL; Eosinophils% 1.1 % (0-5); Hematocrit 42.9 % (40-54); Hemoglobin 14.3 g/dL (13.0-16.5); Lymphocyte # 2.24 X10^3/ul (0.83-4.51); Lymphocyte % 33.7 % (19-41); Mean Corp Hgb Conc 33.3 g/dL (32-36); Mean Corpuscular Hgb 28.5 pg (27.0-32.0); Mean Corpuscular Volume 85.5 fL (80-94); Mean Platelet Vol. 10.6 fl (6.2-12.0); Monocyte# 0.51 X10^3/uL; Monocyte% 7.7 % (0-10); NRBC Flagged by Analyzer 0 % (0-5); Neutrophil # 3.78 X10^3/uL (2.7-7.7); Neutrophil % 56.7 % (47-70); Platelet Count 222 K/mm3 (150-450); RBC Distribution Width CV 13.3 % (11.6-14.6); RBC Distribution Width SD 41.4 fl (35.1-43.9); Red Blood Count 5.02 M/mm3 (4.6-6.2); White Blood Count 6.7 K/mm3 (4.4-11.0)
[2022-05-02 13:11] LABS: AST(SGOT) 14 U/L (15-37); Alanine Aminotransfer ALT/SGPT 29 U/L (16-61); Albumin, Serum 3.7 g/dL (3.2-5.0); Alkaline Phosphatase 69 U/L (45-117); Anion Gap 6 (5-15); BUN 20 mg/dL (7-18); BUN/Creat Ratio 22.1 RATIO (10-20); Chloride 106 mmol/L (98-107); Cholesterol 169 mg/dL (200); EST Glomerular Filtration Rate 92 mL/min (>60); Est Glom Filt Rate - Afr Amer 111 mL/min (>60); Globulin 3.6 g/dL (2.2-4.2); Glucose 96 mg/dL (74-106); High Density Lipoprotein 51 mg/dL; PSA,Total - Annual Screen 0.16 ng/mL (0.00-4.00); Potassium 4.3 mmol/L (3.5-5.1); Protein, Total 7.3 g/dL (6.4-8.2); Sodium Level 138 mmol/L (136-145); Triglycerides 65 mg/dL; Very Low Density Lipoprotein 13 mg/dL (5-40)
== END | disposition home or self-care (01) ==
LOC: MFPLAB 10:37
PROVIDERS: PCP Family Medicine; Referring Provider Family Medicine; Visit Provider Family Medicine
DX: Z00.00 Encounter for general adult medical examination without abnormal findings (principal); Z12.5 Encounter for screening for malignant neoplasm of prostate
CPT/HCPCS: 36415; 80053; 80061; 81001; 84153; 85025; G0103

== ENCOUNTER → 2022-11-01 | Outpatient (CLI) | payer OTHER, SELFPAY ==
[2022-11-01 10:32] LABS: Bacteria 0 SEEN /hpf (None Seen); Mucous, Urine 0 SEEN /hpf (<or=2+); Red Blood Cells-Urine 0 SEEN /hpf (0-5); Squamous Epithelial Cells - UA 0 SEEN /hpf (0-5); White Blood Cells 0 SEEN /hpf (0-5)
[2022-11-01 12:18] LABS: Absolute Lymphocyte Count 1.94 X10^3/uL (0.83-4.51); Basophil# 0.03 X10^3/uL; Basophil% 0.5 % (0-1); Eosinophil# 0.08 X10^3/uL; Eosinophils% 1.4 % (0-5); Hematocrit 41.3 % (40-54); Hemoglobin 14.2 g/dL (13.0-16.5); Lymphocyte # 1.94 X10^3/ul (0.83-4.51); Lymphocyte % 34.3 % (19-41); Mean Corp Hgb Conc 34.4 g/dL (32-36); Mean Corpuscular Hgb 29.2 pg (27.0-32.0); Mean Platelet Vol. 10.4 fl (6.2-12.0); Monocyte# 0.54 X10^3/uL; Monocyte% 9.6 % (0-10); NRBC Flagged by Analyzer 0 % (0-5); Neutrophil # 3.04 X10^3/uL (2.7-7.7); Neutrophil % 53.8 % (47-70); Platelet Count 210 K/mm3 (150-450); RBC Distribution Width CV 13.3 % (11.6-14.6); RBC Distribution Width SD 41.1 fl (35.1-43.9); Red Blood Count 4.86 M/mm3 (4.6-6.2); White Blood Count 5.7 K/mm3 (4.4-11.0)
[2022-11-01 12:26] LABS: Color, Urine Yellow (Yellow); Glucose, Dipstick Normal (Normal); Ketone-Dipstick Negative (Negative); Leukocyte Esterase-Dipstick Negative /ul (Negative); Nitrite-Dipstick Negative (Negative); Occult Blood-Urine Negative /ul (Negative); Protein-Dipstick Negative (Negative); Specific Gravity, Urine 1.025 (1.002-1.030); Urine Bilirubin Dipstick Negative (Negative); Urine Clarity Clear (Clear); Urine Urobilinogen Normal (Normal)
[2022-11-01 12:55] LABS: ALB/GLOB Ratio 1.1 RATIO (0.9-2.4); AST(SGOT) 13 U/L (15-37); Alanine Aminotransfer ALT/SGPT 29 U/L (16-61); Albumin, Serum 3.7 g/dL (3.2-5.0); Alkaline Phosphatase 76 U/L (45-117); Anion Gap 4 (5-15); BUN 25 mg/dL (7-18); Calcium,Total 8.4 mg/dL (8.5-10.1); Chloride 109 mmol/L (98-107); Cholesterol 175 mg/dL (200); Creatinine, Serum 0.96 mg/dL (0.70-1.30); EST Glomerular Filtration Rate 85 mL/min (>60); Est Glom Filt Rate - Afr Amer 103 mL/min (>60); Globulin 3.4 g/dL (2.2-4.2); Glucose 97 mg/dL (74-106); High Density Lipoprotein 54 mg/dL; Potassium 3.8 mmol/L (3.5-5.1); Protein, Total 7.1 g/dL (6.4-8.2); Sodium Level 139 mmol/L (136-145); Triglycerides 131 mg/dL; Very Low Density Lipoprotein 26 mg/dL (5-40)
== END | disposition home or self-care (01) ==
PROVIDERS: PCP Family Medicine; Referring Provider Family Medicine; Visit Provider Family Medicine
DX: I10 Essential (primary) hypertension (principal)
CPT/HCPCS: 36415; 80053; 80061; 81001; 85025

== ENCOUNTER → 2024-08-21 | Outpatient (CLI) | payer SELFPAY ==
[2024-08-21 11:38] LABS: Bacteria 0 SEEN /hpf (None Seen); Mucous, Urine 0 SEEN /hpf (<or=2+)
[2024-08-21 15:25] LABS: Absolute Lymphocyte Count 2.02 X10^3/uL (0.83-4.51); Absolute Neutrophil Count 4.1 X10^3/uL (2.0-7.7); Basophil# 0.04 X10^3/uL; Basophil% 0.6 % (0-1); Eosinophil# 0.08 X10^3/uL; Eosinophils% 1.2 % (0-5); Hematocrit 41.6 % (40-54); Hemoglobin 14.1 g/dL (13.0-16.5); Lymphocyte # 2.02 X10^3/ul (0.83-4.51); Lymphocyte % 29.9 % (19-41); Mean Corp Hgb Conc 33.9 g/dL (32-36); Mean Corpuscular Hgb 28.9 pg (27.0-32.0); Mean Corpuscular Volume 85.2 fL (80-94); Mean Platelet Vol. 10.8 fl (6.2-12.0); Monocyte# 0.46 X10^3/uL; Monocyte% 6.8 % (0-10); NRBC Flagged by Analyzer 0 % (0-5); Neutrophil # 4.13 X10^3/uL (2.7-7.7); Neutrophil % 61.2 % (47-70); Platelet Count 236 K/mm3 (150-450); RBC Distribution Width CV 13.2 % (11.6-14.6); RBC Distribution Width SD 41.2 fl (35.1-43.9); Red Blood Count 4.88 M/mm3 (4.6-6.2); White Blood Count 6.8 K/mm3 (4.4-11.0)
[2024-08-21 16:04] LABS: Cholesterol 189 mg/dL (<=200); High Density Lipoprotein 50 mg/dL; Low Density Lipoprotein Calc. 108 mg/dL; Magnesium 2.2 mg/dL (1.5-2.2); PSA,Total - Annual Screen 0.12 ng/mL (0.02-4.00); Triglycerides 157 mg/dL; Very Low Density Lipoprotein 31 mg/dL (5-40)
[2024-08-21 16:23] LABS: ALB/GLOB Ratio 1.4 RATIO (0.9-2.4); AST(SGOT) 17 U/L (<=37); Alanine Aminotransfer ALT/SGPT 23 U/L (<=46); Albumin, Serum 4.2 g/dL (3.5-5.0); Alkaline Phosphatase 85 U/L (40-129); BUN 19 mg/dL (4-19); BUN/Creat Ratio 17.2 RATIO (10-20); Calcium,Total 9.2 mg/dL (7.6-11.0); Chloride 103 mmol/L (98-108); Creatinine, Serum 1.09 mg/dL (0.70-1.20); EST Glomerular Filtration Rate 78 (>60); Glucose 77 mg/dL (70-99); Potassium 4.2 mmol/L (3.3-5.1); Protein, Total 7.1 g/dL (5.9-8.4); Sodium Level 138 mmol/L (133-145); Total Bilirubin 0.43 mg/dL (0.00-1.30)
[2024-08-21 16:28] LABS: Color, Urine Yellow (Yellow); Glucose, Dipstick Normal (Normal); Ketone-Dipstick Negative (Negative); Leukocyte Esterase-Dipstick Negative /ul (Negative); Nitrite-Dipstick Negative (Negative); Occult Blood-Urine Negative /ul (Negative); Protein-Dipstick Negative (Negative); Specific Gravity, Urine 1.025 (1.002-1.030); Urine Bilirubin Dipstick Negative (Negative); Urine Clarity Clear (Clear); Urine Urobilinogen Normal (Normal)
[2024-08-21 16:29] LABS: Anion Gap 13 (5-15); Carbon Dioxide 21.6 mmol/L (21.0-32.0)
[2024-08-21 17:39] LABS: Red Blood Cells-Urine 0-5 SEEN /hpf (0-5); Squamous Epithelial Cells - UA 0-5 SEEN /hpf (0-5); White Blood Cells 0-5 SEEN /hpf (0-5)
== END | disposition home or self-care (01) ==
PROVIDERS: PCP Family Medicine; Referring Provider Family Medicine; Visit Provider Family Medicine
DX: I10 Essential (primary) hypertension (principal); Z12.5 Encounter for screening for malignant neoplasm of prostate
CPT/HCPCS: 36415; 80053; 80061; 81001; 83735; 84153; 85025; G0103

== ENCOUNTER → 2025-01-20 | Outpatient (CLI) | payer MEDICAID, SELFPAY ==
--- NOTE | 2025-01-20 12:53 | RAD_ITS ---
EXAM: XR Lumbosacral Spine, 2 or 3 Views CLINICAL INDICATION: BACK PAIN AND FREQUENT URINATION. TECHNIQUE: Frontal and lateral views of the lumbar spine and sacrum. COMPARISON: No relevant prior studies available. FINDINGS: VERTEBRAE: Moderate facet arthropathy L3-S1. No acute fracture. Normal alignment. SACRUM/COCCYX: Unremarkable as visualized. No acute fracture. DISC SPACES: No acute findings. No significant narrowing. SOFT TISSUES: Unremarkable. RAD/Lumbar Spine 2 or 3 Views IMPRESSION: Degenerative changes as above. Reading Location: [id number]
== END | disposition home or self-care (01) ==
LOC: MTRAD 12:53
PROVIDERS: PCP Family Medicine
DX: M54.50 Low back pain, unspecified (principal)
CPT/HCPCS: 72100

== ENCOUNTER → 2025-02-03 | Outpatient (CLI) | payer MEDICAID, SELFPAY ==
[2025-02-03 12:37] LABS: Hematocrit 43.5 % (40-54); Hemoglobin 14.6 g/dL (13.0-16.5); Immature Granulocytes Count 0.020 X10^3/uL (0.0-0.0); Mean Corp Hgb Conc 33.6 g/dL (32-36); Mean Corpuscular Volume 83.2 fL (80-94); Mean Platelet Vol. 10.3 fl (6.2-12.0); NRBC Flagged by Analyzer 0 % (0-5); Platelet Count 221 K/mm3 (150-450); RBC Distribution Width CV 13.2 % (11.6-14.6); RBC Distribution Width SD 39.8 fl (35.1-43.9); Red Blood Count 5.23 M/mm3 (4.6-6.2); White Blood Count 5.7 K/mm3 (4.4-11.0)
[2025-02-03 12:38] LABS: Color, Urine Yellow (Yellow); Glucose, Dipstick Normal (Normal); Ketone-Dipstick Negative (Negative); Leukocyte Esterase-Dipstick Negative /ul (Negative); Nitrite-Dipstick Negative (Negative); Occult Blood-Urine Negative /ul (Negative); Protein-Dipstick Negative (Negative); Specific Gravity, Urine 1.010 (1.002-1.030); Urine Bilirubin Dipstick Negative (Negative)
[2025-02-03 12:49] LABS: Mucous, Urine 0 SEEN /hpf (<or=2+); Red Blood Cells-Urine 0 SEEN /hpf (0-5); Squamous Epithelial Cells - UA 0 SEEN /hpf (0-5)
[2025-02-03 15:55] LABS: AST(SGOT) 19 U/L (<=37); Alanine Aminotransfer ALT/SGPT 24 U/L (<=46); Albumin, Serum 4.3 g/dL (3.4-4.8); Alkaline Phosphatase 77 U/L (40-129); Anion Gap 11 (5-15); BUN 24 mg/dL (4-19); BUN/Creat Ratio 26.7 RATIO (10-20); Calcium,Total 9.3 mg/dL (7.6-11.0); Carbon Dioxide 23.2 mmol/L (21.0-32.0); Chloride 103 mmol/L (98-108); Cholesterol 178 mg/dL (<=200); Globulin 3.0 g/dL (2.2-4.2); Glucose 83 mg/dL (70-99); Low Density Lipoprotein Calc. 101 mg/dL; Magnesium 2.4 mg/dL (1.5-2.2); Potassium 4.4 mmol/L (3.3-5.1); Triglycerides 96 mg/dL; Very Low Density Lipoprotein 19 mg/dL (5-40); cholesterol:hdl ratio screen 3.00
== END | disposition home or self-care (01) ==
LOC: MFPLAB 11:04
PROVIDERS: PCP Family Medicine; Visit Provider Family Medicine
DX: I10 Essential (primary) hypertension (principal)
CPT/HCPCS: 36415; 80053; 80061; 81001; 83735; 85025